=== PATIENT | female | born 1995 | race African-American/Black ===

== ENCOUNTER 2018-05-26 20:19 | Emergency (ER) | payer MEDICAID ==
[~2018-05-26] VITALS: Ht 160 cm; Wt 99.0 kg
[2018-05-26 20:36] VITALS: BP 146/88
[2018-05-26 21:07] LABS: CLARITY URINE CLEAR (CLEAR); COLOR URINE YELLOW (YELLOW); KETONES URINE NEGATIVE (NEGATIVE); LEUKOCYTE ESTERASE URINE NEGATIVE (NEGATIVE); NITRITE URINE NEGATIVE (NEGATIVE); OCCULT BLOOD URINE NEGATIVE (NEGATIVE); PH URINE 8.5 (4.5-8.0); PROTEIN URINE NEGATIVE (NEGATIVE); SPECIFIC GRAVITY URINE 1.013 (1.005-1.030); UROBILINOGEN URINE 0.2 E.U./dL (0.2-1.0)
== END 2018-05-27 01:03 | disposition left against medical advice (07) ==
LOC: ER 21:41
DX: R10.9 Unspecified abdominal pain (principal); Z53.21 Procedure and treatment not carried out due to patient leaving prior to being seen by health care provider
CPT/HCPCS: 81003; 81025; 99281

== ENCOUNTER 2019-06-22 20:49 | Emergency (ER) | payer MEDICAID ==
[~2019-06-22] VITALS: Ht 162.6 cm; Wt 98.0 kg
[2019-06-22] MEDS ORDERED: DIPHENHYDRAMINE 50MG/ML VIAL IV ONE (22:45)
[2019-06-22] MEDS ORDERED: METOCLOPRAMIDE HCL 10MG/2ML VIAL IV ONE (22:45)
[2019-06-22] MEDS ORDERED: KETOROLAC 30MG/ML VIAL IV ONE (22:45)
[2019-06-22 23:20] VITALS: BP 165/91
[2019-06-22 23:32] LABS: CHLORIDE 108 mEq/L (98-107)
[2019-06-22 23:33] LABS: BASOPHILS % 1.2 % (0.0-2.0); EOSINOPHILS % 1.3 % (0.0-5.0); HEMATOCRIT. 39.6 % (36.0-48.0); HEMOGLOBIN. 12.8 g/dL (12.0-16.0); LYMPHOCYTES % 34.2 % (20.0-50.0); MEAN CORPUSCULAR HEMOGLOBIN 25.1 pg (28.0-32.0); MEAN CORPUSCULAR VOLUME 77.4 fL (81.0-99.0); MEAN PLATELET VOLUME 8.4 fl (7.4-10.4); MONOCYTES % 4.3 % (2.0-8.0); PLATELET 373 x1000/uL (130-400); RED BLOOD CELL COUNT 5.11 mill/uL (4.2-5.4); RED CELL DISTRIBUTION WIDTH 15.5 % (11.6-14.6)
[2019-06-23] MEDS ORDERED: POTASSIUM CHLORIDE 20MEQ TABLET SR PO ONE
== END 2019-06-23 01:15 | disposition home or self-care (01) ==
LOC: ER 20:49
DX: G44.209 Tension-type headache, unspecified, not intractable (principal)
CPT/HCPCS: 36415; 80048; 81025; 85025; 96374; 96375; 99283; J1200; J1885; J2765

== ENCOUNTER 2019-06-30 02:41 | Emergency (ER) | payer MEDICAID ==
[~2019-06-30] VITALS: Ht 160 cm; Wt 103.5 kg
[2019-06-30 04:11] VITALS: BP 141/92
== END 2019-06-30 04:13 | disposition home or self-care (01) ==
LOC: ER 02:41
DX: H92.02 Otalgia, left ear (principal); J32.9 Chronic sinusitis, unspecified
CPT/HCPCS: 99283

== ENCOUNTER 2019-07-19 22:37 | Emergency (ER) | payer MEDICAID ==
[~2019-07-19] VITALS: Ht 160 cm; Wt 97.0 kg
[2019-07-20 00:31] VITALS: BP 139/92
[2019-07-20 00:53] LABS: BASOPHILS % 0.9 % (0.0-2.0); EOSINOPHILS % 0.6 % (0.0-5.0); HEMATOCRIT. 38.5 % (36.0-48.0); HEMOGLOBIN. 12.6 g/dL (12.0-16.0); LYMPHOCYTES % 23.8 % (20.0-50.0); MEAN CORPUSCULAR HEMOGLOBIN 25.5 pg (28.0-32.0); MEAN CORPUSCULAR VOLUME 77.7 fL (81.0-99.0); MEAN PLATELET VOLUME 8.2 fl (7.4-10.4); NEUTROPHILS % 70.7 % (40.0-76.0); PLATELET 351 x1000/uL (130-400); RED BLOOD CELL COUNT 4.95 mill/uL (4.2-5.4); RED CELL DISTRIBUTION WIDTH 15.6 % (11.6-14.6)
[2019-07-20 00:54] LABS: CHLORIDE 106 mEq/L (98-107)
[2019-07-20 00:58] LABS: CLARITY URINE CLEAR (CLEAR); COLOR URINE YELLOW (YELLOW); KETONES URINE NEGATIVE (NEGATIVE); LEUKOCYTE ESTERASE URINE NEGATIVE (NEGATIVE); NITRITE URINE NEGATIVE (NEGATIVE); OCCULT BLOOD URINE NEGATIVE (NEGATIVE); PH URINE 6.5 (4.5-8.0); PROTEIN URINE NEGATIVE (NEGATIVE); UROBILINOGEN URINE 0.2 E.U./dL (0.2-1.0)
[2019-07-20] MEDS ORDERED: ACETAMINOPHEN 500MG TABLET PO NR (01:15)
== END 2019-07-20 01:33 | disposition home or self-care (01) ==
LOC: ER 22:37
DX: R53.1 Weakness (principal); R11.0 Nausea; D64.9 Anemia, unspecified
CPT/HCPCS: 36415; 81003; 81025; 99283